=== PATIENT | male | born 1960 | race Caucasian/White ===

== ENCOUNTER 2017-06-17 19:17 | Emergency (ER) | payer OTHER ==
[2017-06-17 19:25] VITALS: BP 106/65; PULSE 74; TEMP 97.8; BMI 31.5
[2017-06-17] MEDS ORDERED: KETOROLAC TROMETHAMINE 60 MG/2 ML VIAL IM ONE (20:23)
--- NOTE | 2017-06-17 20:23 | PDOC ---
History of Present Illness - General Chief Complaint: Back Pain Stated Complaint: PAIN Time Seen by Provider: 06/17/17 20:04 - History of Present Illness Initial Comments: 06/17/17 20:18 Chief Complaint: "my sciatica is acting up." History of Present Illness: 56 yo M with hx of low back pain with R sided sciatica presents to fast track with worsening pain x 4 days of back pain. Patient reports that his pain was so bad that he "could not move my R leg yesterday." However he does report that he drove to the hospital. He denies any loss of sensation to his lower extremities and no loss of bowel or bladder function. He states he had an MRI done last month and is being referred by an orthopedic surgeon by his pain management doctor. Past Medical History: Denies past medical history Family History: Denies Social History: Denies toxic habits Surgical history: Denies Allergies: No known drug allergies Review of Systems: GENERAL/CONSTITUTIONAL: No fever or chills. No weakness. No weight change. HEAD, EYES, EARS, NOSE AND THROAT: No change in vision. No ear pain or discharge. No sore throat. CARDIOVASCULAR: No chest pain or shortness of breath. RESPIRATORY: No cough, wheezing, or hemoptysis. GASTROINTESTINAL: No nausea, vomiting, diarrhea or constipation. No rectal bleeding. GENITOURINARY: No dysuria, frequency, or change in urination. MUSCULOSKELETAL: No bladder or bowel dysfunction. No weakness, difficulty walking. No joint or muscle swelling or pain. No neck or back pain. SKIN AND BREASTS: No rash or easy bruising. NEUROLOGIC: No headache, vertigo, loss of consciousness, or loss of sensation. PSYCHIATRIC: No depression or anxiety. ENDOCRINE: No increased thirst. No abnormal weight change. HEMATOLOGIC/LYMPHATIC: No anemia, easy bleeding, or history of blood clots. ALLERGIC/IMMUNOLOGIC: No hives or skin allergy. No latex allergy. General: Well-appearing, appropriately dressed. No apparent Distress. HEENT: EOMI, ANJELICA, Normal ENT inspection, Normal Voice, TMs Normal, Pharynx Normal. No conjunctival pallor, photophobia, scleral icterus Neck: Trachea midline, supple, no midline tenderness to cervical spine. Respiratory/Chest: Lungs CTAB Cardiovascular: Regular Rhythm, Regular Rate, S1, S2. Vascular Pulses: Dorsalis-Pedis (R): 2+, Doralis-Pedis (L): 2+ Musculoskeletal: Limited ROM to R leg due to pain elicited with flexion of R leg , patient ambulatory but with significant pain. Normal capillary refill, distal pulses equal bilaterally. Stable pelvis. No tenderness, swelling, erythema, or deformity. No midline point tenderness to cervical, thoracic, lumbar spine. Integumentary: Normal color, dry, warm. No cyanosis, erythema, jaundice or rash Neurologic: A&Ox3, follow commands, respond appropriately CN2-12: conjugate gaze, pupil round, equal and reactive to light. Visual field full to confrontation. EOMI without nystagmus, pursuit is smooth without saccade. Facial sensation and muscle activation intact bilaterally. Hearing intact bilaterally. Palate elevate symmetrically. Shoulder shrug and neck turn full strength. Tongue protrude midline. Motor: UE and LE strength 5/5 throughout bilaterally. Muscle tone and bulk normal. Past History - Past Medical History Allergies/Adverse Reactions: Allergies Allergy/AdvReac Type Severity Reaction Status Date / Time Penicillins Allergy Verified 06/17/17 19:25 vancomycin Allergy Verified 06/17/17 19:25 Home Medications: Ambulatory Orders Cyclobenzaprine HCl 10 mg PO HS PRN #5 tablet 06/17/17 Naproxen [EC-Naprosyn 375 MG] 375 mg PO BID #14 tab 06/17/17 COPD: No - Suicide/Smoking/Psychosocial Hx Smoking History: Never smoked Have you smoked in the past 12 months: No Information on smoking cessation initiated: No Hx Alcohol Use: No Drug/Substance Use Hx: No Substance Use Type: None *Physical Exam - Vital Signs Last Vital Signs Temp Pulse Resp BP Pulse Ox 97.8 F 74 18 106/65 99 06/17/17 19:20 06/17/17 19:20 06/17/17 19:20 06/17/17 19:20 06/17/17 19:20 Medical Decision Making - Medical Decision Making 06/17/17 20:29 56 yo M with hx of low back pain with R sided sciatica presents to fast track with worsening pain x 4 days of back pain. -Toradol IM [place] [facility] referenced: Patient Name: Donavon Cooper Date: 1960 Address: [address] [place] [address] Sex: Male Rx Written Rx Dispensed Drug Quantity Days Supply Prescriber Name 12/21/2016 05/31/2017 zolpidem tartrate 10 mg tablet 30 30 Rona Voss MD 05/24/2017 05/31/2017 oxycodone hcl 20 mg tablet 120 30 Rona Voss MD 05/24/2017 05/31/2017 alprazolam 2 mg tablet 90 30 Rona Voss MD 12/21/2016 05/01/2017 zolpidem tartrate 10 mg tablet 30 30 RitchieedissRona fuentes MD 04/25/2017 05/01/2017 alprazolam 2 mg tablet 90 30 Rona Voss MD 04/25/2017 05/01/2017 oxycodone hcl 20 mg tablet 120 30 Rona Voss MD 12/21/2016 03/30/2017 zolpidem tartrate 10 mg tablet 30 30 Rona Voss MD Patient already has significant amount of opioids prescribed for pain management. Will rx cyclobenzaprine and caution patient not to mix with Ambien or Xanax. Advised patient to take medications as prescribed and f/u with pain management doctor in 3 days as planned. *DC/Admit/Observation/Transfer Diagnosis at time of Disposition: Low back pain with sciatica - Discharge Dispostion Disposition: HOME Condition at time of disposition: Stable Admit: No - Prescriptions Prescriptions: Cyclobenzaprine HCl 10 mg PO HS PRN #5 tablet PRN Reason: Back Pain Naproxen [EC-Naprosyn 375 MG] 375 mg PO BID #14 tab - Referrals Referrals: Lang Mosley MD [Staff Physician] - - Patient Instructions Printed Discharge Instructions: DI for Back Pain With Sciatica Additional Instructions: Please take medication as prescribed. Do NOT take cyclobenzaprine with Xanax or Ambien. Follow up with your pain management doctor this Monday as scheduled. If you experience any loss of sensation to your extremities, any loss of bowel or bladder function, any swelling or increased pain to your leg, please return to the ER IMMEDIATELY. - Post Discharge Activity
[2017-06-17] MEDS ORDERED: KETOROLAC TROMETHAMINE 60 MG/2 ML VIAL ONE (20:25)
== END 2017-06-17 20:45 | disposition home or self-care (01) ==
LOC: JERFT 19:17
PROC: 3E0233Z Introduction of Anti-inflammatory into Muscle, Percutaneous Approach (ICD-10-PCS; principal; 2017-06-17)
DX: M54.41 Lumbago with sciatica, right side (principal)
CPT/HCPCS: 96372; 99281-25

== ENCOUNTER 2017-07-13 08:24 | Emergency (ER) | payer OTHER ==
[2017-07-13 08:29] VITALS: BP 119/75; PULSE 91; TEMP 98.1; BMI 31.0
--- NOTE | 2017-07-13 09:21 | PDOC ---
History of Present Illness - General Chief Complaint: Chronic pain Stated Complaint: BACK PAIN Time Seen by Provider: 07/13/17 08:51 History Source: Patient Exam Limitations: No Limitations - History of Present Illness Initial Comments: CHIEF COMPLAINT: 56 y/o male with hx of LBP with right sided sciatica, slipped lumbar discs c/o worsening low back pain x 1 week. HISTORY OF PRESENT ILLNESS: The patient states he gets epidural injections from his pain management doctor but eventually needs back surgery. He states the relief from the epidurals are lasting less and less time. He states his low back pain intensified over the past week and is shooting into his right leg. He denies new injury, numbness/tingling to lower extremities, bowel/ bladder incontinence. Past History - Past Medical History Allergies/Adverse Reactions: Allergies Allergy/AdvReac Type Severity Reaction Status Date / Time Penicillins Allergy Verified 07/13/17 08:30 vancomycin Allergy Verified 07/13/17 08:30 Home Medications: Ambulatory Orders Cyclobenzaprine HCl 10 mg PO BID #12 tablet 07/13/17 Naproxen 500 mg PO BID #20 tablet 07/13/17 Cancer: Yes (TESTICULAR) COPD: No - Suicide/Smoking/Psychosocial Hx Smoking History: Never smoked Have you smoked in the past 12 months: No Hx Alcohol Use: No Drug/Substance Use Hx: No Substance Use Type: None Review of Systems - Review of Systems Able to Perform ROS?: Yes Constitutional: No: Symptoms Reported HEENTM: No: Symptoms Reported Respiratory: No: Symptoms reported Cardiac (ROS): No: Symptoms Reported ABD/GI: No: Symptoms Reported : No: Symptoms Reported Musculoskeletal: Yes: Back Pain, Other (right leg pain ) Integumentary: No: Symptoms Reported Neurological: No: Symptoms reported *Physical Exam - Vital Signs Last Vital Signs Temp Pulse Resp BP Pulse Ox 98.1 F 91 H 16 119/75 97 07/13/17 08:26 07/13/17 08:26 07/13/17 08:26 07/13/17 08:26 07/13/17 08:26 - Physical Exam Comments: Well appearing male who is very slow to ambulate secondary to pain. General Appearance: Yes: Nourished, Appropriately Dressed Respiratory/Chest: negative: Chest Tender, Lungs Clear, Normal Breath Sounds, Respiratory Distress, Accessory Muscle Use, Labored Respiration, Rapid RR, Decreased Breath Sounds, Paradoxal Breathing, Crackles, Rales, Rhonchi, Stridor , Wheezing, Hyperresonant, Dullness, Plerual Rub, Other Cardiovascular: negative: Regular Rhythm, Regular Rate, S1, S2, Edema, JVD, Murmur, Bradycardia, Tachycardia, Diastolic Murmur, Systolic Murmur, Gallop/S3, Gallop/S4, Irregularly Irregular, Irregular, Other Gastrointestinal/Abdominal: negative: Normal Bowel Sounds, Tender, Flat, Soft, Organomegaly, Pulsatile Mass, Increased Bowel Sounds, Decreased BS, Protuberent , Distended, Guarding, Rebound, Tenderness, Hernia, Mass, Hepatomegaly, Spleenomegaly, Other Musculoskeletal: positive: Muscle Spasm (right hamstring and gluteal muscle spasm), Vertebral Tenderness (vertebral tenderness L4-L5; patient admits that is his baseline). negative: CVA Tenderness (R), CVA Tenderness (L) Extremity: positive: Other (Pain with flexion and extension of right leg.) Neurologic: positive: host/hostess restaurant II-XII NML intact, Fully Oriented, Motor Strength 5/5 , Other (No saddle anesthesia. Sensory and motor intact in b/l LEs. ) Medical Decision Making - Medical Decision Making A/P: 56 y/o male with flare up of right sided sciatica. Patient has hx of low back issues and is awaiting surgical intervention. He is prescribed narcotics by his pain management doctor. Will give IM toradol in the ER and d/c with flexeril and naproxen which he states has helped in the past. Suggested he f/u with his pain management and orthopedic doctors as soon as possible and return to the ER with any worsening or concerning symptoms. The patient verbalizes understanding of all instructions, has no further questions and is awaiting discharge. *DC/Admit/Observation/Transfer Diagnosis at time of Disposition: Low back pain with sciatica Qualifiers: Chronicity: unspecified Back pain laterality: bilateral Sciatica laterality: bilateral sciatica Qualified Code(s): M54.42 - Lumbago with sciatica, left side ; M54.41 - Lumbago with sciatica, right side; M54.41 - Lumbago with sciatica, right side - Discharge Dispostion Disposition: HOME Condition at time of disposition: Stable - Referrals Referrals: Rona Voss [Primary Care Provider] - - Patient Instructions Printed Discharge Instructions: DI for Back Pain With Sciatica Additional Instructions: Discharge INstructions: -2 prescriptions have been sent to your pharmacy -Do not take Ibuprofen while taking naproxen -Do not take any muscle relaxers while taking cyclobenzaprine -Follow up with your pain management and orthopedic doctors as soon as possible -REturn to the ER with any worsening or concerning symptoms - Post Discharge Activity
[2017-07-13] MEDS ORDERED: KETOROLAC TROMETHAMINE 60 MG/2 ML VIAL ONE (09:22)
[2017-07-13] MEDS ORDERED: KETOROLAC TROMETHAMINE 60 MG/2 ML VIAL IM ONE (09:22)
== END 2017-07-13 09:34 | disposition home or self-care (01) ==
LOC: JERFT 08:24
PROC: 3E0233Z Introduction of Anti-inflammatory into Muscle, Percutaneous Approach (ICD-10-PCS; principal; 2017-07-13)
DX: M54.41 Lumbago with sciatica, right side (principal); M54.42 Lumbago with sciatica, left side
CPT/HCPCS: 99281-25

== ENCOUNTER 2017-08-31 06:13 | Inpatient (IN) | payer OTHER ==
[2017-08-25 10:26] VITALS: BMI 30.3
[2017-08-31] MEDS ORDERED: oxyCODONE HCL 10 MG SUSTAINED ACTING TABLET PO STA (06:51)
[2017-08-31] MEDS ORDERED: oxyCODONE HCL 10 MG SUSTAINED ACTING TABLET ONE (07:30)
[2017-08-31] MEDS ORDERED: THROMBIN (BOVINE) 5,000 UNIT VIAL TP ONE ×2 (07:32→09:41)
[2017-08-31] MEDS ORDERED: LIDOCAINE 1%/EPI 1:100000 (20 ML MULTI DOSE VIAL) ONE (07:32)
[2017-08-31] MEDS ORDERED: BUPIVACAINE HCL/PF 0.5% (5MG/ML) 10 ML VIAL ONE ×2 (07:38→08:57)
[2017-08-31] MEDS ORDERED: MIDAZOLAM HCL 2 MG/2 ML SINGLE DOSE VIAL ONE ×2 (07:39)
--- NOTE | 2017-08-31 07:53 | HP ---
History & Physical Update - History History: No Change - Physical Physical: No Change - Assessment Assessment: No Change - Plan Plan: No Change (Here today for elective L5/S1 TLIF. Low back pain (R>L) with associated numbness/tingling. Since having his initial H&P 08/16/17, no new problems or medications.)
[2017-08-31] MEDS ORDERED: DEXAMETHASONE SOD PHOSPHATE 4 MG/1 ML VIAL ONE (09:10)
[2017-08-31] MEDS ORDERED: ONDANSETRON 4 MG/2 ML VIAL ONE ×2 (09:10→11:54)
[2017-08-31] MEDS ORDERED: ceFAZolin SODIUM 1 GM VIAL ONE (09:11)
[2017-08-31] MEDS ORDERED: LIDOCAINE HCL 2% (20ML MULTI-DOSE VIAL) NR ONE (09:23)
[2017-08-31] MEDS ORDERED: BUPIVACAINE HCL/PF 2.5 MG/ML - 30 ML VIAL IJ ONE (09:25)
[2017-08-31] MEDS ORDERED: BUPIVACAINE LIPOSOME/PF (EXPAREL) 266 MG/20 ML VIAL ONE (09:26)
[2017-08-31] MEDS ORDERED: LIDOCAINE 1%/EPI 1:100000 (20 ML MULTI DOSE VIAL) IJ ONE (09:30)
[2017-08-31] MEDS ORDERED: FLUMAZENIL 0.5 MG/5 ML VIAL ONE (09:35)
[2017-08-31] MEDS ORDERED: PROPOFOL 20 ML ONE ×2 (09:38→10:09)
[2017-08-31] MEDS ORDERED: ONDANSETRON 4 MG/2 ML VIAL IVPUSH PRN (10:13)
[2017-08-31] MEDS ORDERED: LACTATED RINGERS SOLUTION 1,000 ML IV SCH ×2 (10:15→12:00)
[2017-08-31] MEDS ORDERED: BUPIVACAINE HCL/PF 0.25% (2.5MG/ML) 10 ML VIAL IJ ONE (10:53)
[2017-08-31] MEDS ORDERED: BUPIVACAINE LIPOSOME/PF (EXPAREL) 266 MG/20 ML VIAL NR ONE (10:53)
--- NOTE | 2017-08-31 11:47 | OP ---
Operative Note - Note: Operative Date: 08/31/17 Pre-Operative Diagnosis: Spondylolithesis L5/S1 with radiculopathy Operation: L5/S1 TLIF Post-Operative Diagnosis: Same as Pre-op Surgeon: Sreekanth Clancy Debrander: Neno Castillo Anesthesiologist/LOG ROPER: Vashti Thomas Anesthesia: Spinal Estimated Blood Loss (mls): 20 Fluid Volume Replaced (mls): 1,000 Operative Report Dictated: Yes
[2017-08-31] MEDS ORDERED: ACETAMINOPHEN 1000 MG/100 ML VIAL (NON FORMULARY) IVPB PRN (11:48)
[2017-08-31] MEDS ORDERED: oxyCODONE HCL 5 MG TABLET PO PRN ×2 (11:48)
--- NOTE | 2017-08-31 11:48 | SURG ---
Surgery Assistant Manager Of Operations Note Assistant Manager Of Operations: Neno Castillo PA-C Date of Service: 08/31/17 Diagnosis: Spondylolithesis with radiculopathy Procedure: Transforaminal lumbar interbody instrumentation / fusion / decompression L5/S1, allograft implant. Neuromonitoring I was present for the entirety of the operative procedure. For further detail, please refer to operative report. Visit type - Case Type Case Type: Scheduled Admission - New patient This patient is new to me today: Yes Date on this admission: 08/31/17
[2017-08-31] MEDS ORDERED: HYDROmorphone HCL CARPU-JECT 1 MG/1 ML DISP.SYRIN ONE (11:54)
[2017-08-31] MEDS ORDERED: ACETAMINOPHEN 325 MG TABLET (FP) PO SCH (12:00)
[2017-08-31] MEDS: HYDROmorphone HCL CARPU-JECT 1 MG/1 ML DISP.SYRIN IVPUSH PRN ×2 (12:00→12:16)
[2017-08-31] MEDS ORDERED: oxyCODONE HCL 5 MG TABLET ONE (12:45)
[2017-08-31 13:46] VITALS: TEMP 97.9
--- NOTE | 2017-08-31 14:24 | OP ---
DATE OF OPERATION: 08/31/2017 PREOPERATIVE DIAGNOSIS: Spondylolisthesis, L5-S1. POSTOPERATIVE DIAGNOSIS: Spondylolisthesis, L5-S1. PROCEDURE PERFORMED: 1. Transforaminal lumbar interbody fusion, L5-S1. 2. Placement of prosthetic cage. 3. Placement of instrumentation. SURGEON: Sreekanth Clancy MD COMPUTER SYSTEMS HARDWARE ANALYST: QI Pimentel ESTIMATED BLOOD LOSS: 50 mL. IV FLUIDS: Per Anesthesia. ANESTHESIA: Spine. COMPLICATIONS: There were none. DISPOSITION: Patient brought to the PACU in stable condition. INDICATION FOR SURGERY: The patient is a 57-year-old gentleman who has been suffering from pain from his back down his legs. X-rays and MRI were completed, which noted that he had spinal stenosis at L5-S1. He had gone through an exhaustive course of treatment for this, which included medications, physical therapy as well as injections. Unfortunately, his pain continued to persist despite all this. At this point, risks, benefits, and alternatives were discussed and the patient consented to surgery. OPERATIVE NOTE: The patient was brought to the operating room by the anesthesia staff. After appropriate patient identification was performed, spinal anesthesia was given and the patient was able to position himself prone onto the OR table, with all areas of bony prominences well padded at this time. The C-arm was brought in. The L5-S1 pedicles were marked off. Lidocaine 10 mL with epinephrine was injected into his back. At this time, his back was prepped and draped in a sterile manner. At this point, timeout was completed. An incision was made bilaterally over the top of the L5 down to the S1 pedicles. Dissection was carried down to the fascia. The fascia was then split at this time. Under C-arm guidance, trocars were advanced into both the L5 and S1 pedicles. Through the trocars, a wire was inserted. Over the wires, tap was performed and screws inserted. On the right-hand side, retractor blades were set up to expose the L5-S1 facet joint. The facet joint was removed. The disk was entered using a series of pituitaries, Kerrisons and curettes. A diskectomy was completed. The endplates were decorticated at this time. Bone graft was laid down. A size 8 cage was placed in. Tulip heads were placed over the screws. A liam was measured and placed in. Caps were placed on. Compression and final tightening was performed. On the left-hand side, a liam was measured and placed in, caps and final tightening was performed. AP and lateral x-rays confirmed the instrumentation to be in good position. The fascia was closed with a number 1 Vicryl suture. The subcutaneous tissues were closed with 2-0 Vicryl suture. Skin was closed with a 3-0 Monocryl suture. Dermabond was applied, Steri-Strips were applied, a sterile dressing was applied. Patient was placed supine on the OR bed and brought to the PACU in stable condition. Nathalia [id number] MTDD
[2017-08-31] MEDS ORDERED: traMADol HCL 50 MG TABLET ONE (15:02)
[2017-08-31] MEDS ORDERED: CEFAZOLIN 1 GM/D5W 1 GM/50 ML BAG ONE (15:51)
[2017-08-31] MEDS ORDERED: CEFAZOLIN 1 GM/D5W 1 GM/50 ML BAG IVPB ONE (16:15)
[2017-08-31 18:31] VITALS: BP 140/80; PULSE 77
[2017-08-31] MEDS ORDERED: diazePAM 2 MG TABLET PO SCH (22:00)
== END 2017-08-31 18:32 | disposition home or self-care (01) | DRG 460 ==
LOC: FM/S 06:13
PROVIDERS: ADMIT Orthopaedic Surgery Orthopaedic Surgery of the Spine; ATTEND Orthopaedic Surgery Orthopaedic Surgery of the Spine
PROC: 0SG30KJ Fusion of Lumbosacral Joint with Nonautologous Tissue Substitute, Posterior Approach, Anterior Column, Open Approach (ICD-10-PCS; 2017-08-31)
PROC: 0SG30AJ Fusion of Lumbosacral Joint with Interbody Fusion Device, Posterior Approach, Anterior Column, Open Approach (ICD-10-PCS; principal; 2017-08-31 09:41)
DX: M43.17 Spondylolisthesis, lumbosacral region (principal)
CPT/HCPCS: 72100-TC-FY; 76001-TC-FY; 94760; J0131

== ENCOUNTER 2018-08-15 16:31 | Emergency (ER) | payer OTHER ==
[2018-08-15] MEDS ORDERED: morphine CARPU-JECT 4 MG/1 ML DISP.SYRIN IVPUSH ONE (16:41)
--- NOTE | 2018-08-15 16:41 | PDOC ---
Rapid Medical Evaluation Time Seen by Provider: 08/15/18 16:37 Medical Evaluation: Allergies Allergy/AdvReac Type Severity Reaction Status Date / Time Penicillins Allergy Verified 07/13/17 08:30 vancomycin Allergy Verified 07/13/17 08:30 08/15/18 16:37 I have performed a brief in-person evaluation of this patient. The patient presents with a chief complaint of: right flank pain and has not voided today Pertinent physical exam findings: R CVAT tenderness. +diaphoresis. appears anxious. I have ordered the following: urine, CT The patient will proceed to the ED for further evaluation. Discharge Disposition - Diagnosis Acute right flank pain - Referrals - Patient Instructions - Post Discharge Activity
[2018-08-15 16:42] VITALS: BMI 32.5
[2018-08-15] MEDS ORDERED: morphine SULFATE 4 MG/ML VIAL ONE (18:04)
[2018-08-15 18:27] LABS: URINE APPEARANCE CLEAR; URINE BILIRUBIN NEGATIVE (<2.0 mg/dL); URINE COLOR YELLOW; URINE GLUCOSE (UA) NEGATIVE (NEGATIVE); URINE KETONE NEGATIVE (NEGATIVE); URINE LEUK ESTERASE NEGATIVE (NEGATIVE); URINE NITRITE NEGATIVE (NEGATIVE); URINE PROTEIN 1+ (NEGATIVE); URINE UROBILINOGEN NEGATIVE mg/dL (0.2-1.0)
[2018-08-15 18:29] LABS: URINE MUCUS RARE
[2018-08-15] MEDS ORDERED: SODIUM CHLORIDE 1,000 ML IV STA (20:18)
[2018-08-15] MEDS ORDERED: KETOROLAC TROMETHAMINE 30 MG/1 ML VIAL IVPUSH ONE (20:18)
[2018-08-15] MEDS ORDERED: KETOROLAC TROMETHAMINE 30 MG/1 ML VIAL ONE (20:23)
--- NOTE | 2018-08-15 20:51 | PDOC ---
*Physical Exam - Vital Signs Last Vital Signs Temp Pulse Resp BP Pulse Ox 97.3 F L 66 20 113/89 98 08/15/18 16:40 08/15/18 16:40 08/15/18 16:40 08/15/18 16:40 08/15/18 16:40 ED Treatment Course - ADDITIONAL ORDERS Additional order review: Laboratory Results 08/15/18 18:03 Urine Color Yellow Urine Appearance Clear Urine pH 5.0 Ur Specific Hoffman 1.025 Urine Protein 1+ H Urine Glucose (UA) Negative Urine Ketones Negative Urine Blood 3+ H Urine Nitrite Negative Urine Bilirubin Negative Urine Urobilinogen Negative Ur Leukocyte Esterase Negative Urine WBC (Auto) 1 Urine RBC (Auto) 28 Urine Mucus Rare - Medications Given in the ED: ED Medications Discontinued Medications Generic Name Dose Route Start Last Admin Trade Name Freq PRN Reason Stop Dose Admin Ketorolac Tromethamine 30 mg 08/15/18 20:18 08/15/18 20:25 Toradol Injection - IVPUSH 08/15/18 20:19 30 mg ONCE ONE Administration Morphine Sulfate 4 mg 08/15/18 16:41 08/15/18 18:10 Morphine Injection - IVPUSH 08/15/18 16:42 4 mg ONCE ONE Administration Medical Decision Making - Medical Decision Making 08/15/18 20:51 Patient seen by the advanced practice provider under my direct supervision. Ancillary testing reviewed as necessary. I agree with plan as outlined by the advanced practice provider. *DC/Admit/Observation/Transfer Diagnosis at time of Disposition: Acute right flank pain - Referrals Referrals: Rona Voss [Primary Care Provider] - - Patient Instructions - Post Discharge Activity
[2018-08-15 20:53] LABS: BASO % 0.4 % (0-2.0); HEMATOCRIT 41.9 % (35.4-49); LYMPH % 6.9 % (8-40); MCH 32.9 pg (25.7-33.7); MCHC 35.8 g/dl (32.0-35.9); MEAN CELL VOLUME 91.9 fl (80-96); MEAN PLT VOLUME 8.5 fl (7.5-11.1); MONO % 6.1 % (3.8-10.2); NEUT % 86.6 % (42.8-82.8); PLATELET COUNT 186 K/MM3 (134-434); RBC 4.56 M/mm3 (4.00-5.60); WHITE BLOOD COUNT 11.8 K/mm3 (4.0-10.0)
--- NOTE | 2018-08-15 21:02 | PDOC ---
History of Present Illness - General Chief Complaint: Pain, Acute Stated Complaint: KIDNEY PROBLEM Time Seen by Provider: 08/15/18 16:37 History Source: Patient Exam Limitations: No Limitations Past History - Past Medical History Allergies/Adverse Reactions: Allergies Allergy/AdvReac Type Severity Reaction Status Date / Time Penicillins Allergy Verified 08/15/18 16:39 vancomycin Allergy Verified 08/15/18 16:39 Home Medications: Ambulatory Orders Naproxen 500 mg PO BID PRN 08/25/17 Tadalafil [Cialis] 5 mg PO DAILY 08/25/17 Cyclobenzaprine HCl 10 mg PO BID PRN #20 tablet 08/31/17 Oxycodone HCl/Acetaminophen [Percocet 5-325 mg Tablet] 1 tab PO Q4H PRN #30 tablet MDD 6 08/31/17 Oxycodone HCl/Acetaminophen [Percocet 5-325 mg Tablet] 1 tab PO Q4H PRN #18 tablet MDD 6 08/15/18 Sennosides [Senna] 15 mg PO DAILY PRN #14 tablet 08/15/18 Tamsulosin HCl [Flomax] 0.4 mg PO DAILY #7 cap.er.24h 08/15/18 Anemia: No Asthma: No Cancer: Yes (TESTICULAR 2009-had chemo) Cardiac Disorders: No CVA: No COPD: No CHF: No Dementia: No Diabetes: No GI Disorders: No Disorders: No HTN: No Hypercholesterolemia: No Liver Disease: No Seizures: No Thyroid Disease: No - Surgical History Abdominal Surgery: No Appendectomy: Yes Cardiac Surgery: No Cholecystectomy: No Lung Surgery: No Neurologic Surgery: No Orthopedic Surgery: Yes (Right Rotator Cuff Repair) - Suicide/Smoking/Psychosocial Hx Smoking History: Never smoked Have you smoked in the past 12 months: No Hx Alcohol Use: No Drug/Substance Use Hx: Yes Substance Use Type: None Hx Substance Use Treatment: No *Physical Exam - Vital Signs Last Vital Signs Temp Pulse Resp BP Pulse Ox 97.3 F L 66 20 113/89 98 08/15/18 16:40 08/15/18 16:40 08/15/18 16:40 08/15/18 16:40 08/15/18 16:40 - Physical Exam General Appearance: No: Apparent Distress Respiratory/Chest: positive: Lungs Clear, Normal Breath Sounds. negative: Respiratory Distress Cardiovascular: positive: Regular Rhythm, Regular Rate, S1, S2. negative: Murmur Gastrointestinal/Abdominal: positive: Tender (in RLQ), Soft. negative: Distended, Guarding, Rebound, Mass Musculoskeletal: positive: CVA Tenderness (R) Integumentary: positive: Normal Color Neurologic: positive: Alert, Normal Mood/Affect Moderate Sedation - Procedure Monitoring Vital Signs: Procedure Monitoring Vital Signs Temperature 97.3 F L 08/15/18 16:40 Pulse Rate 66 08/15/18 16:40 Respiratory Rate 20 08/15/18 16:40 Blood Pressure 113/89 08/15/18 16:40 O2 Sat by Pulse Oximetry (%) 98 08/15/18 16:40 ED Treatment Course - LABORATORY CBC & Chemistry Diagram: 08/15/18 20:47 08/15/18 20:47 - ADDITIONAL ORDERS Additional order review: Laboratory Results 08/15/18 18:03 Urine Color Yellow Urine Appearance Clear Urine pH 5.0 Ur Specific Donnelly 1.025 Urine Protein 1+ H Urine Glucose (UA) Negative Urine Ketones Negative Urine Blood 3+ H Urine Nitrite Negative Urine Bilirubin Negative Urine Urobilinogen Negative Ur Leukocyte Esterase Negative Urine WBC (Auto) 1 Urine RBC (Auto) 28 Urine Mucus Rare 08/15/18 20:47 RBC 4.56 MCV 91.9 MCHC 35.8 RDW 14.0 MPV 8.5 Neutrophils % 86.6 H Lymphocytes % 6.9 L Monocytes % 6.1 Eosinophils % 0.0 Basophils % 0.4 - Medications Given in the ED: ED Medications Discontinued Medications Generic Name Dose Route Start Last Admin Trade Name Freq PRN Reason Stop Dose Admin Ketorolac Tromethamine 30 mg 08/15/18 20:18 08/15/18 20:25 Toradol Injection - IVPUSH 08/15/18 20:19 30 mg ONCE ONE Administration Morphine Sulfate 4 mg 08/15/18 16:41 08/15/18 18:10 Morphine Injection - IVPUSH 08/15/18 16:42 4 mg ONCE ONE Administration Medical Decision Making - Medical Decision Making 57 y/o M hx of kidney stones, testicular CA (s/p surgery, chemo 10 years ago, in remission), erectile dysfunction presents with R flank pain radiating to groin x 4 days, pain gradually worsening. Also had few episodes of NBNB emesis today. States pain feels similar to his prior kidney stones. Denies fever, sob, cp, hematuria, dysuria. CT scan shows 2 to 3 mm distal R ureteral calculus with mild hydro Patient was given Morphine (ordered from triage), but states pain is returning Plan: Labs, IVF, Toradol, reassess 08/15/18 21:00 Cr 1.4, normal GFR Mildly elevated WBC Patient afebrile, urine shows no sign of infection Patient appears more comfortable and endorses feeling better Given urine strainer Stable for dc 08/15/18 22:04 *DC/Admit/Observation/Transfer Diagnosis at time of Disposition: Kidney stone on right side - Discharge Dispostion Disposition: HOME Condition at time of disposition: Improved Decision to Admit order: No - Prescriptions Prescriptions: Oxycodone HCl/Acetaminophen [Percocet 5-325 mg Tablet] 1 tab PO Q4H PRN #18 tablet MDD 6 PRN Reason: Pain Sennosides [Senna] 15 mg PO DAILY PRN #14 tablet PRN Reason: Constipation Tamsulosin HCl [Flomax] 0.4 mg PO DAILY #7 cap.er.24h - Referrals Referrals: Jonathan Brewster MD., MD [Staff Physician] - 3 days Rona Voss [Primary Care Provider] - 3 days - Patient Instructions Printed Discharge Instructions: DI for Kidney Stones Additional Instructions: Thank you for choosing [facility]. It was a pleasure taking care of you. You may take Motrin 600 mg every 6 hours by mouth as needed for mild to moderate pain. Take Motrin with food. For severe pain, you may take Percocet. This medication can make you constipated for which you may take over the Senna tablets as needed. This medication can also make you drowsy so please be cautious with driving or performing heavy physical work. You were also given Flomax to help pass the stone. You may stop this medication once the stone passes You were also referred to urology for follow-up. Return to the Emergency Department if your symptoms worsen or persist, you have fever, severe abdominal/flank pain, vomiting, blood in urine or other concerning symptoms. - Post Discharge Activity
[2018-08-15 21:35] LABS: ANION GAP 8 MMOL/L (8-16); BLOOD UREA NITROGEN 20 mg/dL (7-18); CALCIUM 8.8 mg/dL (8.5-10.1); CHLORIDE 103 mmol/L (98-107); CO2 25 mmol/L (21-32); CREATININE 1.4 mg/dL (0.55-1.3); GLUCOSE,RANDOM 125 mg/dL (74-106); POTASSIUM 4.4 mmol/L (3.5-5.1); SODIUM 136 mmol/L (136-145)
[2018-08-15 23:00] VITALS: BP 126/78; PULSE 78; TEMP 97.9
== END 2018-08-15 23:00 | disposition home or self-care (01) ==
LOC: JER 16:31
PROC: 3E0337Z Introduction of Electrolytic and Water Balance Substance into Peripheral Vein, Percutaneous Approach (ICD-10-PCS; principal; 2018-08-15)
PROC: 3E033NZ Introduction of Analgesics, Hypnotics, Sedatives into Peripheral Vein, Percutaneous Approach (ICD-10-PCS; 2018-08-15)
PROC: 3E0333Z Introduction of Anti-inflammatory into Peripheral Vein, Percutaneous Approach (ICD-10-PCS; 2018-08-15)
DX: N13.2 Hydronephrosis with renal and ureteral calculous obstruction (principal); Z87.442 Personal history of urinary calculi; Z85.47 Personal history of malignant neoplasm of testis
CPT/HCPCS: 36415; 74176-TC; 80048; 81003; 81015; 85025; 87086; 99283-25; J7030

== ENCOUNTER 2019-07-03 06:05 | Day surgery (SDC) | payer OTHER ==
[2019-07-02 12:10] VITALS: BMI 29.2
[~2019-07-03 06:05] MED LIST: BSS (NA/CA/MG/K) BALANCED SALT SOLUTION OPHTH SOLN 15 ML BOTTLE OS ONE; CHONDROITIN SU A/HYALUR SOD 1 KIT IO ONE; EPINEPHrine/PF 1 MG/1 ML (1:1,000) AMPULE SQ ONE; LIDOCAINE HCL 1% PRESERVATIVE FREE - 30ML VIAL IO ONE; POVIDONE-IODINE 5% OPHTHALMIC PREP 30 ML SOLUTION OS ONE; TETRACAINE 0.5% OPHTH SOLN 2 ML BOTTLE OS ONE
[2019-07-03] MEDS: OFLOXACIN 0.3% OPHTHALMIC SOLUTION 5 ML BOTTLE ONE ×3 (06:50→07:19)
[2019-07-03] MEDS: KETOROLAC TROMETHAMINE 0.5% EYE DROP 1 DROP DROPS ONE ×3 (06:50→07:20)
[2019-07-03] MEDS: PHENYLEPHRINE 2.5% OPHTH SOLN 15 ML BOTTLE ONE ×3 (06:50→07:19)
[2019-07-03] MEDS: TROPICAMIDE 1% OPHTH SOLN 15 ML BOTTLE ONE ×3 (06:50→07:19)
[2019-07-03] MEDS: CYCLOPENTOLATE HCL 1% OPHTH SOLN 2 ML BOTTLE ONE ×3 (06:50→07:20)
[2019-07-03] MEDS ORDERED: CHONDROITIN SU A/HYALUR SOD 1 KIT ONE (07:06)
[2019-07-03] MEDS ORDERED: EPINEPHrine/PF 1 MG/1 ML (1:1,000) AMPULE ONE (07:16)
[2019-07-03] MEDS ORDERED: VANCOMYCIN 500 MG VIAL (RESTRICTED TO ID ONLY) ONE (07:16)
[2019-07-03] MEDS ORDERED: TETRACAINE 0.5% OPHTH SOLN 2 ML BOTTLE ONE (07:17)
[2019-07-03] MEDS ORDERED: LIDOCAINE HCL/PF 1% SDV 5ML VIAL ONE (07:17)
[2019-07-03] MEDS ORDERED: BSS (NA/CA/MG/K) BALANCED SALT SOLUTION OPHTH SOLN 15 ML BOTTLE ONE (07:17)
[2019-07-03] MEDS ORDERED: WATER FOR INJ,STERILE 10 ML ONE (07:17)
[2019-07-03] MEDS ORDERED: POVIDONE-IODINE 5% OPHTHALMIC PREP 30 ML SOLUTION ONE (07:17)
[2019-07-03] MEDS ORDERED: TOBRA 0.3%/DEXAMETH 0.1% OPHTHALMIC SUSP 2.5 ML BTL ONE (07:53)
[2019-07-03] MEDS ORDERED: ACETAMINOPHEN 325 MG TABLET (FP) PO PRN (07:54)
[2019-07-03] MEDS ORDERED: CYCLOPENTOLATE HCL 1% OPHTH SOLN 2 ML BOTTLE OP SCH (08:00)
[2019-07-03] MEDS ORDERED: TROPICAMIDE 1% OPHTH SOLN 15 ML BOTTLE OP SCH (08:00)
[2019-07-03] MEDS ORDERED: KETOROLAC TROMETHAMINE 0.5% EYE DROP 1 DROP DROPS OP SCH (08:00)
[2019-07-03] MEDS ORDERED: PHENYLEPHRINE 2.5% OPHTH SOLN 15 ML BOTTLE OP SCH (08:00)
[2019-07-03] MEDS ORDERED: OFLOXACIN 0.3% OPHTHALMIC SOLUTION 5 ML BOTTLE OP SCH (08:00)
[2019-07-03] MEDS ORDERED: MIDAZOLAM HCL 2 MG/2 ML SINGLE DOSE VIAL ONE (08:04)
[2019-07-03] MEDS ORDERED: TETRACAINE 0.5% OPHTH SOLN 2 ML BOTTLE OS ONE (08:11)
[2019-07-03] MEDS ORDERED: POVIDONE-IODINE 5% OPHTHALMIC PREP 30 ML SOLUTION OS ONE (08:12)
[2019-07-03] MEDS ORDERED: BSS (NA/CA/MG/K) BALANCED SALT SOLUTION OPHTH SOLN 15 ML BOTTLE OS ONE (08:19)
[2019-07-03] MEDS ORDERED: LIDOCAINE HCL 1% PRESERVATIVE FREE - 30ML VIAL IO ONE (08:19)
[2019-07-03] MEDS ORDERED: CHONDROITIN SU A/HYALUR SOD 1 KIT IO ONE ×2 (08:19)
[2019-07-03] MEDS ORDERED: EPINEPHrine/PF 1 MG/1 ML (1:1,000) AMPULE SQ ONE (08:26)
[2019-07-03 10:04] VITALS: TEMP 97.9
[2019-07-03 10:12] VITALS: BP 129/73; PULSE 69
--- NOTE | 2019-07-03 15:05 | SPEC ---
DATE OF OPERATION: 07/03/2019 OPERATION: Phacoemulsification of left cataract with posterior chamber intraocular lens implantation, left eye. Lens used [id number], 22.0 Diopter power, Serial No. [id number]. PREOPERATIVE DIAGNOSIS: Cataract, left eye. POSTOPERATIVE DIAGNOSIS: Cataract, left eye. SURGEON: Mayrchuy Huitron M.D. ANESTHESIA: Topical MAC. COMPLICATIONS: None. PROCEDURE: The patient was brought to the operating room and correctly identified along with the operative site and the correct intraocular lens [place]. The patient was then prepped and draped in the usual sterile fashion including 5% Betadine solution in the conjunctival sac and an eyelid drape. An eyelid speculum was then placed in the eye. A paracentesis port was created and approximately 0.5 mL of preservative free Lidocaine was then injected into the eye. Viscoelastic was then injected to inflate the anterior chamber. A temporal clear corneal wound was created. A continuous circular capsulorrhexis was performed. The nucleus was then hydrodissected with BSS and removed with phacoemulsification. The remaining cortical material was irrigated and aspirated. Viscoelastic was injected to inflate the capsular bag and the intraocular lens was then implanted into the capsular bag. The remaining Viscoelastic was irrigated and aspirated from the eye. The IOL was noted to be well centered and completely covered by the anterior capsulorrhexis. Topical vancomycin was placed and the eye patched and shielded. All wounds were tested and found to be watertight. No suture was placed. The eye was then shielded. The patient was then discharged from the operating room in stable condition. MARYCHUY HUITRON M.D. [id number]
== END 2019-07-03 09:30 | disposition home or self-care (01) ==
LOC: JASU-SURG 06:05
PROVIDERS: ATTEND Ophthalmology
PROC: 08RK3JZ Replacement of Left Lens with Synthetic Substitute, Percutaneous Approach (ICD-10-PCS; principal; 2019-07-03 08:00)
DX: H26.9 Unspecified cataract (principal)

== ENCOUNTER 2021-05-19 15:49 | Emergency (ER) | payer OTHER ==
[2021-05-19 16:20] VITALS: BP 116/70; PULSE 66; TEMP 98.2; BMI 32.1
== END 2021-05-19 17:16 | disposition home or self-care (01) ==
LOC: JERFT 15:49
DX: H92.01 Otalgia, right ear (principal)
CPT/HCPCS: 99282-25